=== PATIENT | female | born 1995 | race Caucasian/White ===

== ENCOUNTER 2024-05-29 14:05 | Emergency (ER) | payer MEDICAID ==
[~2024-05-29] VITALS: Ht 160 cm; Wt 82.1 kg
[2024-05-29 14:25] VITALS: BP 138/87; PULSE 90; RESP 16; TEMP 98; O2SAT 99
== END 2024-05-29 15:53 | disposition home or self-care (01) ==
LOC: ER 14:07
DX: O9A.219 Injury, poisoning and certain other consequences of external causes complicating pregnancy, unspecified trimester (principal); S69.82XA Other specified injuries of left wrist, hand and finger(s), initial encounter; M24.542 Contracture, left hand; Z88.8 Allergy status to other drugs, medicaments and biological substances; Z3A.00 Weeks of gestation of pregnancy not specified; X58.XXXA Exposure to other specified factors, initial encounter; Y93.89 Activity, other specified; Y92.89 Other specified places as the place of occurrence of the external cause; Y99.8 Other external cause status
CPT/HCPCS: 99281

== ENCOUNTER 2024-06-13 21:15 | Emergency (ER) | payer MEDICAID ==
[~2024-06-13] VITALS: Ht 162.6 cm; Wt 89.4 kg
[2024-06-13 21:23] VITALS: TEMP 99.2
[2024-06-13 21:51] LABS: BASOPHILS % (AUTO) 0.3 % (0-1); EOSINOPHILS # (AUTO) 0.1 X10'3 (0-0.9); EOSINOPHILS % (AUTO) 1.1 % (0-6); HEMOGLOBIN 12.4 g/dl (12.0-16.0); LYMPHOCYTES # (AUTO) 3.9 X10'3 (1.1-4.8); LYMPHOCYTES % (AUTO) 29.6 % (21-51); MEAN CORPUSCULAR HEMOGLOBIN 30.2 PG (27.0-31.0); MEAN CORPUSCULAR HGB CONC 33.5 g/dL (33.0-36.5); MEAN PLATELET VOLUME 7.3 FL (7.4-10.4); MONOCYTES % (AUTO) 7.9 % (2-12); NEUTROPHILS % (AUTO) 61.1 % (42-75); PLATELET COUNT 317 X10'3 (140-440); RED BLOOD COUNT 4.11 X10'6 (4.20-5.60); RED CELL DISTRIBUTION WIDTH 13.2 % (11.5-14.5); WHITE BLOOD COUNT 13.1 X10'3 (4.5-11.0)
[2024-06-13 21:54] LABS: BILIRUBIN,URINE NEGATIVE (Neg); CLARITY,URINE CLEAR (Clear); COLOR,URINE YELLOW (Yellow); GLUCOSE, URINE NEGATIVE (Neg); KETONES,URINE TRACE mg/dl (Neg); LEUKOCYTE ESTERASE ,URINE NEGATIVE (Neg); NITRITES, URINE NEGATIVE (Neg); OCCULT BLOOD,URINE NEGATIVE (Neg); PROTEIN,URINE NEGATIVE (Neg); UROBILINOGEN,URINE 0.2 E.U/dL (0.2-1.0)
[2024-06-13 21:55] LABS: URINE HCG NEGATIVE (NEG)
[2024-06-13 21:59] LABS: UA COLLECTION TYPE CLN CATCH MIDSTREAM
[2024-06-13 22:01] LABS: ALANINE AMINOTRANSFERASE 40 U/L (12-78); ALBUMIN 3.5 G/DL (3.4-5.0); ALBUMIN/GLOBULIN RATIO 0.9 (1.1-1.5); ALKALINE PHOSPHATASE 88 IU/L (46-116); ANION GAP 6 (8-16); ASPARTATE AMINO TRANSFERASE 18 U/L (10-37); BILIRUBIN,TOTAL 0.6 MG/DL (0.1-1.0); BLOOD UREA NITROGEN 15 MG/DL (7-18); BUN/CREATININE RATIO 19.2 (10.0-20.0); CALCIUM 8.1 MG/DL (8.5-10.1); CHLORIDE 106 MMOL/L (99-107); CREATININE 0.78 MG/DL (0.40-0.90); GLUCOSE 107 MG/DL (70-104); LIPASE 29 U/L (16-77); SODIUM 139 MMOL/L (135-145); TOTAL PROTEIN 7.4 G/DL (6.4-8.2); eCRCL 94 ML/MIN; eGFR 89 ML/MIN
[2024-06-13 22:11] VITALS: BP 125/76; PULSE 109; RESP 16; O2SAT 99
== END 2024-06-14 00:03 | disposition home or self-care (01) ==
LOC: ER 21:17
DX: N83.202 Unspecified ovarian cyst, left side (principal); N83.201 Unspecified ovarian cyst, right side; R10.32 Left lower quadrant pain; Z88.8 Allergy status to other drugs, medicaments and biological substances
CPT/HCPCS: 36415; 76830; 76856; 80053; 81003; 81025; 83605; 83690; 85025; 93976; 99284

== ENCOUNTER 2024-06-24 10:35 | Emergency (ER) | payer MEDICAID ==
[~2024-06-24] VITALS: Ht 162.6 cm; Wt 88.2 kg
[2024-06-24 10:42] VITALS: BP 127/81; PULSE 101; RESP 16; TEMP 98.6; O2SAT 98
[2024-06-24 11:16] LABS: BILIRUBIN,URINE NEGATIVE (Neg); CLARITY,URINE SLIGHTLY CLOUDY (Clear); COLOR,URINE YELLOW (Yellow); GLUCOSE, URINE NEGATIVE (Neg); KETONES,URINE NEGATIVE (Neg); LEUKOCYTE ESTERASE ,URINE SMALL (Neg); NITRITES, URINE NEGATIVE (Neg); OCCULT BLOOD,URINE NEGATIVE (Neg); PROTEIN,URINE NEGATIVE (Neg); UROBILINOGEN,URINE 0.2 E.U/dL (0.2-1.0)
[2024-06-24 11:19] LABS: URINE HCG NEGATIVE (NEG)
[2024-06-24 11:23] LABS: UA COLLECTION TYPE CLN CATCH MIDSTREAM
[2024-06-24 11:24] LABS: BACTERIA,URINE FEW /HPF (Neg); MUCUS STRANDS FEW /LPF (Neg); RBC,URINE 0-2 /HPF (0-2); RENAL CELLS, URINE FEW /HPF; SQUAMOUS EPITHELIAL CELL,UR MODERATE /LPF (FEW); TRANSITIONAL EPI CELLS,URINE FEW /HPF
[2024-06-24] MEDS ORDERED: NITR100C6 PO (11:31)
== END 2024-06-24 11:46 | disposition home or self-care (01) ==
LOC: ER 10:35
DX: N91.2 Amenorrhea, unspecified (principal); N39.0 Urinary tract infection, site not specified; Z98.890 Other specified postprocedural states; Z88.8 Allergy status to other drugs, medicaments and biological substances; Z32.02 Encounter for pregnancy test, result negative
CPT/HCPCS: 81001; 81025; 99283

== ENCOUNTER 2024-06-27 10:11 | Emergency (ER) | payer MEDICAID ==
[~2024-06-27] VITALS: Ht 162.6 cm; Wt 88.4 kg
[~2024-06-27 10:11] MED LIST: NITR100C6 PO
[2024-06-27 10:52] VITALS: BP 109/69; PULSE 89; RESP 18; TEMP 98.2; O2SAT 98
== END 2024-06-27 13:07 | disposition home or self-care (01) ==
LOC: ER 10:12
DX: M24.541 Contracture, right hand (principal); Z88.8 Allergy status to other drugs, medicaments and biological substances
CPT/HCPCS: 73140; 99283

== ENCOUNTER 2024-08-04 12:08 | Outpatient (CLI) | payer MEDICAID ==
[2024-08-04 13:26] LABS: BASOPHILS % (AUTO) 0.2 % (0-1); EOSINOPHILS # (AUTO) 0.1 X10'3 (0-0.9); EOSINOPHILS % (AUTO) 0.6 % (0-6); HEMATOCRIT 36.1 % (35.0-45.0); HEMOGLOBIN 12.4 g/dl (12.0-16.0); LYMPHOCYTES # (AUTO) 2.1 X10'3 (1.1-4.8); LYMPHOCYTES % (AUTO) 23.5 % (21-51); MEAN CORPUSCULAR HEMOGLOBIN 30.6 PG (27.0-31.0); MEAN CORPUSCULAR HGB CONC 34.3 g/dL (33.0-36.5); MEAN PLATELET VOLUME 6.9 FL (7.4-10.4); MONOCYTES # (AUTO) 0.7 X10'3 (0-0.9); MONOCYTES % (AUTO) 7.5 % (2-12); NEUTROPHILS # (AUTO) 6.2 X10'3 (1.8-7.7); NEUTROPHILS % (AUTO) 68.2 % (42-75); PLATELET COUNT 282 X10'3 (140-440); RED BLOOD COUNT 4.05 X10'6 (4.20-5.60); RED CELL DISTRIBUTION WIDTH 12.6 % (11.5-14.5); WHITE BLOOD COUNT 9.1 X10'3 (4.5-11.0)
[2024-08-04 13:44] LABS: BILIRUBIN,URINE NEGATIVE (Neg); CLARITY,URINE CLEAR (Clear); COLOR,URINE YELLOW (Yellow); GLUCOSE, URINE NEGATIVE (Neg); KETONES,URINE NEGATIVE (Neg); LEUKOCYTE ESTERASE ,URINE TRACE (Neg); NITRITES, URINE NEGATIVE (Neg); OCCULT BLOOD,URINE NEGATIVE (Neg); PROTEIN,URINE NEGATIVE (Neg); UROBILINOGEN,URINE 0.2 E.U/dL (0.2-1.0)
[2024-08-04 13:48] LABS: UA COLLECTION TYPE CLN CATCH MIDSTREAM
[2024-08-04 13:50] LABS: BACTERIA,URINE FEW /HPF (Neg); RBC,URINE 0-2 /HPF (0-2); SQUAMOUS EPITHELIAL CELL,UR FEW /LPF (FEW); WBC,URINE 0-4 /HPF (0-4)
[2024-08-04 13:59] LABS: URINE AMPHETAMINE SCREEN NEGATIVE (Neg); URINE BARBITUATE SCREEN NEGATIVE (Neg); URINE BENZODIAZEPINES SCREEN NEGATIVE (Neg); URINE CANNABINOID SCREEN NEGATIVE (Neg); URINE COCAINE SCREEN NEGATIVE (Neg); URINE METHADONE SCREEN NEGATIVE (Neg); URINE OPIATE SCREEN NEGATIVE (Neg); URINE PHENCYCLIDINE SCREEN NEGATIVE (Neg)
[2024-08-04 14:03] LABS: HIV ANTIBODY 1&2 RAPID NON-REACTIVE (Neg)
== END 2024-08-04 23:59 | disposition home or self-care (01) ==
LOC: RAD 12:08
PROVIDERS: ATTEND Obstetrics & Gynecology
DX: Z34.91 Encounter for supervision of normal pregnancy, unspecified, first trimester (principal); D64.9 Anemia, unspecified; R30.0 Dysuria
CPT/HCPCS: 36415; 80305; 81001; 83036; 85025; 86592; 86703; 86762; 86803; 86900; 86901; 87088; 87340; 87491; 87522

== ENCOUNTER 2024-10-05 17:53 | Emergency (ER) | payer MEDICAID ==
[~2024-10-05] VITALS: Ht 162.6 cm; Wt 92.7 kg
[2024-10-05] MEDS ORDERED: KEN0.1O TOP (20:49)
[2024-10-05] MEDS ORDERED: LORA10TA61 PO (20:49)
[2024-10-05] MEDS: loratadine 10mg tablet PO ONE (20:49)
[2024-10-05] MEDS: famotidine 20mg tablet PO ONE (20:49)
[2024-10-05] MEDS: triamcinolone acet 0.1% cream 15gm TP SCH (20:49)
[2024-10-05] MEDS ORDERED: FAMO-280 PO (20:49)
[2024-10-05 20:56] VITALS: BP 130/90; PULSE 99; RESP 18; TEMP 98.6; O2SAT 99
== END 2024-10-05 20:57 | disposition home or self-care (01) ==
LOC: ER 17:54
DX: S60.861A Insect bite (nonvenomous) of right wrist, initial encounter (principal); S40.862A Insect bite (nonvenomous) of left upper arm, initial encounter; W57.XXXA Bitten or stung by nonvenomous insect and other nonvenomous arthropods, initial encounter; Y93.89 Activity, other specified; Y92.89 Other specified places as the place of occurrence of the external cause; Y99.8 Other external cause status
CPT/HCPCS: 99284